=== PATIENT | male | born 1960 | race Caucasian/White ===

== ENCOUNTER 2019-05-14 11:57 | Inpatient (IN) | payer OTHER ==
[~2019-05-14] VITALS: Ht 172.7 cm; Wt 89.8 kg
[2019-05-14] MEDS ORDERED: NAPR500 (12:15)
[2019-05-14] MEDS ORDERED: Nicoderm Cq1 EAC1 (12:15)
[2019-05-14 12:52] LABS: BASOPHILS ABSOLUTE AUTO 0.03 K/mm3 (0.00-0.23); BASOPHILS PERCENT AUTO 0 % (0-2); EOSINOPHILS ABSOLUTE AUTO 0.09 K/mm3 (0.00-0.68); EOSINOPHILS PERCENT AUTO 1 % (0-6); Hematocrit 48.5 % (37.0-53.0); Hemoglobin 16.1 g/dL (13.5-17.5); IMMATURE GRAN ABSOLUTE AUTO 0.02 K/mm3 (0.00-0.10); IMMATURE GRAN PERCENT AUTO 0 % (0-1); LYMPHOCYTES ABSOLUTE AUTO 1.02 K/mm3 (0.84-5.20); LYMPHOCYTES PERCENT AUTO 15 % (21-46); MONOCYTES ABSOLUTE AUTO 0.51 K/mm3 (0.16-1.47); MONOCYTES PERCENT AUTO 7 % (4-13); Mean Corpuscular HGB 33.2 pg (26.0-34.0); Mean Corpuscular HGB Conc 33.2 g/dL (31.5-36.5); Mean Corpuscular Volume 100 fL (80-100); Mean Platelet Volume 9.1 fL (9.1-12.4); NEUTROPHILS ABSOLUTE AUTO 5.29 K/mm3 (1.96-9.15); NEUTROPHILS PERCENT AUTO 76 % (41-73); Platelet Count 210 K/mm3 (150-400); RDW Coefficient Variation 13.2 % (11.7-14.2); RDW Standard Deviation 49.5 fL (35.1-46.3); Red Blood Cell Count 4.85 M/mm3 (4.30-5.90); White Blood Cell Count 6.96 K/mm3 (4.00-11.30)
[2019-05-14 13:10] LABS: Alanine Aminotransfer (ALT/SGP 32 U/L (12-78); Albumin, Blood 3.5 g/dL (3.4-5.0); Albumin/Globulin Ratio 1.2 (0.8-1.8); Alk Phos 152 U/L (50-136); Anion Gap 6 mmol/L (6-16); Aspartate Aminotrans (AST/SGOT 25 U/L (12-37); Bilirubin, Total 1.1 mg/dL (0.1-1.0); Blood Urea Nitrogen 19 mg/dL (8-24); CO2, Blood 29 mmol/L (21-32); Chloride, Blood 104 mmol/L (98-108); Creatinine, Blood 1.12 mg/dL (0.60-1.20); Globulin, Blood 2.8 g/dL (2.2-4.0); Glomerular Filtration Rate >60 (60-); Glucose, Blood 101 mg/dL (70-99); Potassium, Blood 3.6 mmol/L (3.5-5.5); Sodium, Blood 139 mmol/L (136-145); Total Protein, Blood 6.3 g/dL (6.4-8.2)
--- NOTE | 2019-05-14 15:30 | NUR ---
PT ADMITTED TO ROOM 340 FROM ED. TRANSFERRED SELF TO BED. EXPLAINED NEED TO MONITER I AND O AND TO PLEASE USE A URINAL FOR MEASURING. INDEPENDENT IN ROOM. DENIES PAIN BUT DOES REPORT FEELING ANXIOUS AND "CAGED UP" DUE TO NOT BEINNG NEAR THE OUTSIDE. OFFERED A ROOM WITH LARGER WINDOWS BUT PT DECLINED. JITTERY IN BED. REPORTS LAST DRINK WAS 2 WEEKS AGO.
[2019-05-14] MEDS ORDERED: ASPI325 PO (16:25)
[2019-05-14] MEDS ORDERED: BENADRYL25 M1 PO (16:28)
--- NOTE | 2019-05-14 17:04 | NUR ---
Echocardiogram completed.
--- NOTE | 2019-05-14 18:07 | NUR ---
SHIFT SUMMARY PT HAS REMAINED ANXIOUS BUT COOPERATIVE. STATES HE WAS TOLD BY HIS BOSS HE WAS TO STAY AND GET BETTER. DOESN'T WANT TO STAY MORE THAN A DAY OR SO. STATES "YOU DON'T KNOW WHAT I'M GOING TO EAT WHEN I LEAVE" "I FEEL LIKE I'M LOCKED UP". EXPLAINED HE WAS NOT LOCKED UP AND COULD LEAVE WHENEVER HE COULD. STATED HE'S LOCKED UP HERE IN HIS MIND BECAUSE HE KNOWS HE NEEDS TO GET BETTER BEFORE LEAVING BUT IS STRUGGLING WITH BEING INSIDE. OFFERED TO SPEAK WITH MD ABOUT ANTIANXIETY BUT HE STATED NO JUST SOMETHING TO HELP HIM SLEEP LATER. REPORTED 2 BENADRYL IS THE ONLY THING THAT WORKS AND TRAZODONE KEEPS HIM UP AT NIGHT. HANDS COOL AND DUSKY WHEN HE FIRST ARRIVED. IMPROVED SINCE ARRIVAL BUT STILL DUSKY.
[2019-05-15 05:17] LABS: BASOPHILS ABSOLUTE AUTO 0.03 K/mm3 (0.00-0.23); BASOPHILS PERCENT AUTO 1 % (0-2); EOSINOPHILS PERCENT AUTO 2 % (0-6); IMMATURE GRAN ABSOLUTE AUTO 0.02 K/mm3 (0.00-0.10); IMMATURE GRAN PERCENT AUTO 0 % (0-1); LYMPHOCYTES ABSOLUTE AUTO 0.95 K/mm3 (0.84-5.20); LYMPHOCYTES PERCENT AUTO 16 % (21-46); MONOCYTES ABSOLUTE AUTO 0.64 K/mm3 (0.16-1.47); MONOCYTES PERCENT AUTO 11 % (4-13); Mean Corpuscular HGB 32.9 pg (26.0-34.0); Mean Corpuscular HGB Conc 33.3 g/dL (31.5-36.5); Mean Corpuscular Volume 99 fL (80-100); Mean Platelet Volume 9.1 fL (9.1-12.4); NEUTROPHILS ABSOLUTE AUTO 4.21 K/mm3 (1.96-9.15); NEUTROPHILS PERCENT AUTO 71 % (41-73); Platelet Count 177 K/mm3 (150-400); RDW Coefficient Variation 13.2 % (11.7-14.2); RDW Standard Deviation 47.9 fL (35.1-46.3); Red Blood Cell Count 4.56 M/mm3 (4.30-5.90); White Blood Cell Count 5.95 K/mm3 (4.00-11.30)
[2019-05-15 05:33] LABS: Alanine Aminotransfer (ALT/SGP 23 U/L (12-78); Albumin, Blood 3.1 g/dL (3.4-5.0); Albumin/Globulin Ratio 1.3 (0.8-1.8); Alk Phos 126 U/L (50-136); Anion Gap 8 mmol/L (6-16); Aspartate Aminotrans (AST/SGOT 21 U/L (12-37); Bilirubin, Total 1.1 mg/dL (0.1-1.0); Blood Urea Nitrogen 17 mg/dL (8-24); Bun/Creatinine Ratio 15.3 (12.0-20.0); CHOL/HDL RATIO 1.8; CO2, Blood 27 mmol/L (21-32); Calcium, Blood 8.7 mg/dL (8.5-10.1); Chloride, Blood 105 mmol/L (98-108); Cholesterol 107 mg/dL (50-200); Creatinine, Blood 1.11 mg/dL (0.60-1.20); Globulin, Blood 2.3 g/dL (2.2-4.0); Glomerular Filtration Rate >60 (60-); Glucose, Blood 80 mg/dL (70-99); HDL Cholesterol 60 mg/dL (>39); LDL/HDL RATIO 0.5; Low Density Lipoprotein Chol 30 mg/dL (0-110); Potassium, Blood 3.7 mmol/L (3.5-5.5); Sodium, Blood 140 mmol/L (136-145); Total Protein, Blood 5.4 g/dL (6.4-8.2); Triglycerides 85 mg/dL (30-160); Very Low Density Lipoprot Chol 17 mg/dL (6-32)
--- NOTE | 2019-05-15 11:34 | NUR ---
DR WOLFE BEEN HERE RECENTLY TO SEE PT.
--- NOTE | 2019-05-15 12:42 | NUR ---
PLATING TANK OPERATOR APPRENTICE HERE TO SEE PT.
--- NOTE | 2019-05-15 13:01 | NUR ---
DR WOLFE UPDATED ON DR DRAKE'S ORDERS.
--- NOTE | 2019-05-15 14:34 | NUR ---
REPORT BEEN GIVEN TO Paresh WHO IS TAKING OVER CARE AT THIS TIME.
--- NOTE | 2019-05-15 15:29 | NUR ---
ASSUMED CARE OF PT AT ABOUT 1415
--- NOTE | 2019-05-15 19:43 | NUR ---
SUMMARY: NO ACUTE CHANGE SINCE REPORT RECIEVED. PT IS A/O, VSS, INDEPENDENT IN ROOM. REPORT PASSED TO NOC RN
--- NOTE | 2019-05-16 06:26 | NUR ---
SHIFT SUMMARY PATIENT ALERT AND ORIENTED. WAS ABLE TO SLEEP WELL OVERNIGHT. IV PATENT AND FLUSHED. BED IN LOWEST POSITION WITH WHEELS LOCKED. CALL LIGHT WITHIN REACH. REPORT GIVEN TO ONCOMING RN.
--- NOTE | 2019-05-16 14:06 | NUR ---
ASSUMED CARE FROM GHAZALA MOORE AT 1330. PATIENT A&O. PATIENT REPORTS HIS BLE IS MUCH BETTER. 1+ EDEMA AT THIS TIME. HE IS DENYING NEEDS AT THIS TIME.
--- NOTE | 2019-05-16 16:33 | NUR ---
SHIFT SUMMARY NO ACUTE CHANGES SINCE ASSUMING CARE OF PATIENT THIS AFTERNOON. NO COMPLAINTS REPORTED. PATIENTS VSS. HE HAS DENIES NEEDS. IND IN ROOM. PER REPORT, PT TO BE NPO AT MIDNIGHT FOR POSSIBLE ANGIO SATURDAY
--- NOTE | 2019-05-17 04:28 | NUR ---
Rn summary: Patient is alert and oriented and independant in room. Pt had benadryl 50mg to assist him in sleeping tonight. Pt has trace edema in ankles, a little fluid on the top of his feet. Lungs are clear, on RA. Pt has been NPO since midnight for a probable angiogram today. Pt has rested well with no c/o SOB or discomfort. Call light in reach. Will continue to monitor.
[2019-05-17 06:19] LABS: Hematocrit 47.2 % (37.0-53.0); Hemoglobin 15.5 g/dL (13.5-17.5); Mean Corpuscular HGB 32.6 pg (26.0-34.0); Mean Corpuscular HGB Conc 32.8 g/dL (31.5-36.5); Mean Corpuscular Volume 99 fL (80-100); Mean Platelet Volume 8.9 fL (9.1-12.4); Platelet Count 172 K/mm3 (150-400); RDW Coefficient Variation 12.9 % (11.7-14.2); RDW Standard Deviation 47.6 fL (35.1-46.3); Red Blood Cell Count 4.75 M/mm3 (4.30-5.90); White Blood Cell Count 6.19 K/mm3 (4.00-11.30)
[2019-05-17 06:45] LABS: Anion Gap 8 mmol/L (6-16); Blood Urea Nitrogen 16 mg/dL (8-24); Bun/Creatinine Ratio 13.8 (12.0-20.0); CO2, Blood 30 mmol/L (21-32); Calcium, Blood 8.4 mg/dL (8.5-10.1); Chloride, Blood 101 mmol/L (98-108); Creatinine, Blood 1.16 mg/dL (0.60-1.20); Glomerular Filtration Rate >60 (60-); Glucose, Blood 79 mg/dL (70-99); Potassium, Blood 3.5 mmol/L (3.5-5.5); Sodium, Blood 139 mmol/L (136-145)
--- NOTE | 2019-05-17 09:50 | NUR ---
CALLED AND SPOKE TO DR DRAKE (CARDIOLOGY)- PER REPORT PT TO GO FOR POSSIBLE ANGIO TODAY, NO ORDERS IN THE CHART FOR NPO AT THIS TIME PT WAS HELD NPO AT MIDNIGHT BUT RECIEVED A TRAY FOR BREAKFAST. SPOKE TO HOSPITALIST DR WOLFE WHO BELIEVED THE PLAN WAS FOR ANGIO TODAY WELL. PER DR DRAKE THE PLAN IS FOR THE PT TO BE NPO AT MIDNIGHT TONIGHT FOR A RIGHT AND POSSIBLY LEFT HEART CATH TOMORROW Saturday05/18/19. ORDERS FOR NPO AT MIDNIGHT WILL BE PLACED IN CHART. PT AWARE OF PLAN FOR ANGIO TOMORROW.
--- NOTE | 2019-05-17 18:17 | NUR ---
SHIFT SUMMARY- PT ALERT ORIENTED AND INDEPENDENT IN THE ROOM. CALL LIGHT IN REACH, PT CALLS APPROPRIATELY. PLAN IS FOR PT TO GO TO THE [facility] TOMORROW FOR RIGHT AND LEFT HEART CATH. PT IS AWARE. NPO AT MIDNIGHT. NO CP TODAY IV LASIX GIVEN ORDERED, TOMORROW PO LASIX WILL START PT HAS HAD NEARLY 3L OF URINE OUTPUT THIS SHIFT.
--- NOTE | 2019-05-18 05:55 | NUR ---
SHIFT SUMMARY- PT. A&O, INDEPENDENT IN ROOM. SCHEDULED FOR CARDIAC CATH THIS AM. PT. HAS BEEN NPO SINCE [place]. DENIED ANY PAIN OR DISCOMFORT T/O THE NIGHT. NO ACUTE CHANGES TO CONDITION. CALL LIGHT WITHIN REACH AND SIDE RAILS UP X2. WILL CONT TO MONITOR.
[2019-05-18 06:01] LABS: Albumin, Blood 3.4 g/dL (3.4-5.0); Anion Gap 7 mmol/L (6-16); Blood Urea Nitrogen 17 mg/dL (8-24); Bun/Creatinine Ratio 14.8 (12.0-20.0); CO2, Blood 32 mmol/L (21-32); Calcium, Blood 8.9 mg/dL (8.5-10.1); Chloride, Blood 101 mmol/L (98-108); Creatinine, Blood 1.15 mg/dL (0.60-1.20); Glomerular Filtration Rate >60 (60-); Glucose, Blood 78 mg/dL (70-99); Phosphorus, Blood 4.1 mg/dL (2.5-4.9); Potassium, Blood 3.9 mmol/L (3.5-5.5); Sodium, Blood 140 mmol/L (136-145)
--- NOTE | 2019-05-18 10:59 | NUR ---
REPORT CALLED TO [facility] NURSE TERESA WORTHINGTON AT 1052.
--- NOTE | 2019-05-18 12:38 | NUR ---
FOLLOWED PT BACK TO RECOVERY ROOM, AWAITING BED IN PCU. ALL AIR RELEASED FROM TR BAND AT THIS TIME. NO BLEEDING NOTED. SITE WITHOUT TENDERNESS, SWELLING, OR HEMATOMA.
--- NOTE | 2019-05-18 13:12 | NUR ---
PT TO PCU 8 FROM [facility].
--- NOTE | 2019-05-18 14:26 | NUR ---
ASSUMED PATIENT CARE. PATIENT RESTING COMFORTABLY IN BED, CONVERSING WITH NURSING STAFF. TR BAND REMOVED AND TAGADERM APPLIED. NO NEW DISCHARGE NOTED. PATIENT DENIES CHEST PAIN/PRESSURE. NO SIGNS OF ACUTE DISTRESS, WCTM.
--- NOTE | 2019-05-18 18:24 | NUR ---
NO ACUTE EVENTS THIS HALF OF SHIFT. PATIENT ARRIVED FROM [facility] [place]. TR BAND REMOVED, NO ADDITIONAL DRAINAGE NOTED. PATIENT DENIED CHEST PAIN/PRESSURE. PATIENT DENIED PAIN AT PUNCTURE SITE. ELEVATED BNP THIS SHIFT, CONTINUE TO MONITOR.
--- NOTE | 2019-05-18 19:38 | NUR ---
RELINQUISHED PATIENT CARE.
--- NOTE | 2019-05-19 06:47 | NUR ---
SHIFT SUMMARY NO ACUTE CHANGES T/O SHIFT. PT A/OX4 WITH VSS. IS IND IN ROOM. ANGIOGRAM PUNCTURE SITE APPEARS C/D/I WITH NO NEW DRAINAGE OR BRUISING NOTED. BRACE TO RIGHT WRIST AREA IN PLACE FOR SAFETY. REPORTS TOLERATING REGULAR DIET AND VOIDING WELL. IS EAGERLY LOOKING FORWARD TO GOING HOME. IS CURRENTLY UP IN BED WATCHING TV WITH CALL LIGHT IN REACH. WILL CONT TO MONITOR AND GIVE REPORT TO ONCOMING RN.
[2019-05-19] MEDS ORDERED: LISI20 PO (11:35)
[2019-05-19] MEDS ORDERED: FURO40 PO (11:35)
[2019-05-19] MEDS ORDERED: METO50ER PO (11:36)
[2019-05-19] MEDS ORDERED: SPIR25 PO (11:36)
--- NOTE | 2019-05-19 12:27 | NUR ---
DISCHARGE INSTRUCTIONS GONE OVER WITH PT. INSTRUCTED PT ON NEW MEDICATIONS AND PROVIDED PRINTED MATERIALS. PROVIDED DISCHARGE TEACHING ON RADIAL ACCESS AND NEW CHF. CALLED FOR FOLLOWUP APPOINTMENTS AND THE [place] [facility] WILL CALL PT WITH THE NEXT AVAILABLE APPOINTMENTS. INSTRUCTED PT, THAT IF HE DOESN'T HEAR BACK FROM THEM TO REACH OUT AND SEEK FOLLOW-UP CARE. PT'S PRESCRIPTIONS WERE CALLED IN TO [place], PER PT'S REQUEST. PT AMBULATED OUT OF FACILITY, ESCORTED BY RN. ALL BELONGINGS WERE GATHERED AND TRANSPORTED WITH PT.
== END 2019-05-19 12:25 | disposition home or self-care (01) | DRG 286 ==
LOC: ER 11:57 → MEDS 13:50 → PCU 05-18 12:25
PROVIDERS: Emergency Medicine; Internal Medicine; Internal Medicine Cardiovascular Disease; Nurse Practitioner Acute Care; ADMIT Internal Medicine
PROC: 4A023N8 Measurement of Cardiac Sampling and Pressure, Bilateral, Percutaneous Approach (ICD-10-PCS; principal; 2019-05-18)
PROC: B2111ZZ Fluoroscopy of Multiple Coronary Arteries using Low Osmolar Contrast (ICD-10-PCS; 2019-05-18)
DX: I11.0 Hypertensive heart disease with heart failure (principal); I50.21 Acute systolic (congestive) heart failure; Q21.1 Atrial septal defect; I42.9 Cardiomyopathy, unspecified; F10.10 Alcohol abuse, uncomplicated; I34.0 Nonrheumatic mitral (valve) insufficiency; I27.21 Secondary pulmonary arterial hypertension; F17.210 Nicotine dependence, cigarettes, uncomplicated
CPT/HCPCS: 36415; 80048; 80053; 80061; 80069; 83036; 83735; 83880; 84132; 84443; 84484; 85025; 85027; 90686; 93306; 93460; 96374-59; 99152; 99153; 99285-25; A9270; A9270-GY; C1769; C1894; J0360; J1644; J1650; J1940; J2250; J3010; J7030; Q0163; Q9967